=== PATIENT | female | born 1980 ===

== ENCOUNTER 2016-07-20 08:49 | Day surgery (SDC) | payer OTHER ==
[2016-07-16 08:04] VITALS: BMI 21.9
[2016-07-20] MEDS ORDERED: Lactated Ringer's 1,000 ML IV ONE ×2 (09:51→11:50)
[2016-07-20] MEDS ORDERED: Propofol 10 mg/ml Inj (20 ML) ONE (11:18)
[2016-07-20] MEDS ORDERED: Midazolam 2 MG/2 ML VIAL ONE (11:18)
[2016-07-20] MEDS ORDERED: ceFAZolin IV 1 gm in Dextrose 0 GM/0 ML BAG IVPB ONE (11:21)
[2016-07-20] MEDS: Bupivacaine HCl 0.25% PF (10 ml) Inj ONE ×2 (11:33→11:44)
[2016-07-20] MEDS ORDERED: Esmolol 100 mg/10ml Inj IV ONE (11:37)
[2016-07-20] MEDS ORDERED: Neostigmine Methylsulfate 3mg/3ml Syringe IV ONE (12:07)
[2016-07-20] MEDS ORDERED: Morphine 4 MG/ML VIAL ONE (12:15)
[2016-07-20] MEDS ORDERED: HYDROmorphone 0.5 mg/0.5 ml ISec IVP PRN (12:31)
--- NOTE | 2016-07-20 12:31 | PCM.SURG1 ---
Surgeon's Initial Post Op Note - Surgeon's Notes Surgeon: Luz Bolden MD Lead Level Designer: Pascual Barbosa MD Type of Anesthesia: General Endo Anesthesia Administered By: Dr Kaba Pre-Operative Diagnosis: Multiparity desring permanent tubal sterilization Operative Findings: anteverted uteurs 10 weeks, no adnexal masses, normal uteurs , tubes and ovaries bilaterally. Dr Pascual Barbosa was volunteer services assistant and was present for entrie case and essential in gaining entry, retraction, exposure , removing speicmens and closing Post-Operative Diagnosis: same as pre operative diagnosis Operation Performed: Laparscopic bilateral salpingecotmy Specimen/Specimens Removed: Right and left fallopian tubes Estimated Blood Loss: EBL {In ML}: 5 Blood Products Given: N/A Drains Used: No Drains Post-Op Condition: Good Date of Surgery/Procedure: 07/20/16 Time of Surgery/Procedure: 11:30
[2016-07-20] MEDS ORDERED: HYDROmorphone 0.5 mg/0.5 ml ISec IVP ONE (12:58)
--- NOTE | 2016-07-20 13:33 | OP ---
PROCEDURE DATE: 07/20/2016 SURGEON: Dr. Luz Bolden QUALITY CONTROL: Dr. Pascual Barbosa TYPE OF ANESTHESIA: General endotracheal. ANESTHESIA ADMINISTERED BY: Dr. Kaba PREOPERATIVE DIAGNOSIS: Multiparity, desiring permanent bilateral tubal sterilization. POSTOPERATIVE DIAGNOSIS: Multiparity, desiring permanent bilateral tubal sterilization. OPERATIVE FINDINGS: Anteverted uterus, 10 weeks. No adnexal masses. Normal uterus, tubes, and ovar ies bilaterally. Dr. Pascual Barbosa was the surgical assistant certified and was present for the entire case and essential in gai renaldo entry, retraction, exposure, removing specimens and closing. OPERATION PERFORMED: Laparoscopic bilateral salpingectomy. SPECIMEN REMOVED: Right and left fallopian tubes. ESTIMATED BLOOD LOSS: 5 mL. BLOOD PRODUCTS: None. COMPLICATIONS: None. After an informed consent was obtained, the patient was taken to the operating where general anesthet ic was administered without difficulty. She was then positioned in the dorsal supine position, prepp ed and draped in the usual sterile fashion with the legs supported using stirrups. Once the anesthes ia was found be adequate, bimanual exam was performed with above-mentioned findings. Cook retractor was placed in the anterior, posterior fornix of vagina. The cervix was adequately visualized. Singl e tooth tenaculum was placed in the anterior lip of the cervix. The uterus was then sounded and foll owing this, the HUMI uterine manipulator then was inserted and insufflated with 8 mL of air. The sin gle tooth tenaculum was removed and there was good hemostasis at the tenaculum puncture sites. All i nstruments were removed except the HUMI manipulator. Following this, the surgeon regloved and attent ion was then turned to the abdomen and a 1 cm infraumbilical skin incision was made after administeri ng 0.5 Marcaine 1 mL. On the lateral aspect, towel clamps were placed on either side to help tent up the skin after a skin incision was made and the Veress needle was inserted through the incision. Ne xt, the syringe was used to inject normal saline into the Veress needle. The normal saline was seen to flow freely, so the Veress needle was then connected to the CO2 gas, which was started at its lowe st setting. The gas was seen to flow freely with normal resistance. The abdomen was insufflated to an adequate distention of 15 mmHg. Once an adequate distention was reached, the CO2 gas was disconne cted. The Veress needle was removed and a 5 mm step trocar was then introduced with the introducer a nd the laparoscope under direct visualization. Upon insertion and visualization, the introducer was then removed. The camera was then inserted and the CO2 gas was then reconnected. There were normal tubes and ovaries noted. Following this, a 1 cm skin incision was made, both in the right and left l ower quadrants, approximately 4 fingerbreadths from the anterior superior iliac spine after local ane sthetic was administered. The skin incision was made and following this, a 5 mm trocar was then inse rted under direct visualization. A 5 mm port was placed on both sides, approximately 5 fingerbreadth s to the left of umbilicus and right of umbilicus. Following this, a blunt probe was then inserted i nto the abdomen and an atraumatic grasper was used to help elevate the probe to help allow for retrac tion and exposure. Following this, a 5 mm LigaSure device was inserted and the fallopian tube on eit her side was then used to transect the mesosalpinx inferior to the fallopian tube and then transect t he fallopian tube proximal, close to the cornua region. LigaSure device was then used and the specim en was then removed. The specimen was removed through the 5 mm port. A similar fashion was done on the opposite side. There was good hemostasis noted. The abdomen was then suction irrigated and ther e was good hemostasis noted. There seemed to be hemostasis. The abdomen was irrigated with good hem ostasis. At this point, the 5 mm ports were removed under direct visualization. The abdomen was disha ufflated. There was good hemostasis noted. The camera was then removed. CO2 gas was . The sk in was reapproximated, closed with 4-0 Monocryl in a running continuous fashion. The HUMI manipulato r was then removed. All instruments removed. At the end of the procedure, all needle, sponge and in strument counts were noted to be correct x 2. The patient tolerated the procedure well and was trans ferred to the recovery room in stable condition. Luz Bolden MD cc: [id number] TT: 07/20/2016 13:32:28 en
[2016-07-20 17:12] VITALS: BP 114/65; PULSE 70; RESP 20; TEMP 97.9; O2SAT 100
== END 2016-07-20 15:55 | disposition home or self-care (01) ==
LOC: C.SDS 08:49
PROVIDERS: ATTEND Obstetrics & Gynecology
DX: Z30.2 Encounter for sterilization (principal)
CPT/HCPCS: 58661; 88302; J1170; J1885; J2250; J2270; J2405; J2704; J2710; J2765; J3010; J7120

== ENCOUNTER 2016-07-29 20:14 | Emergency (ER) | payer OTHER ==
[2016-07-29 20:14] VITALS: BMI 21.9
[2016-07-29 20:43] VITALS: O2SAT 100
[2016-07-29] MEDS ORDERED: Lidocaine 2% Viscous 100 ml PO STA (21:48)
[2016-07-29] MEDS ORDERED: Aluminum Hydroxide/Magnesium Hydroxide Susp (30 mL) PO STA (21:48)
--- NOTE | 2016-07-29 21:48 | C.PDOC ---
History Of Present Illness 36 year old female presents to the ED with complaints of exacerbation to chronic LUQ pain for the past two days with new onset of black stool today prompting visit. Patient notes six weeks ago seeing her GI doctor and pending to schedule endoscopy. She also describes similar symptoms in 2010 with LUQ pain , burning in left flank, and nausea. Patient states she took pepto bismol and is currently taking omeprazole. Surgical history includes a tubal ligation this month with negative abdominal CT and abdominal sonogram earlier this year for similar symptoms. She denies fever or any other complaints at this time. Time Seen by Provider: 07/29/16 20:56 Chief Complaint (Nursing): Abdominal Pain History Per: Patient History/Exam Limitations: no limitations Onset/Duration Of Symptoms: Days Current Symptoms Are (Timing): Still Present Location Of Pain/Discomfort: LUQ Quality Of Discomfort: "Pain" Associated Symptoms: Nausea. denies: Fever, Chills, Vomiting, Diarrhea Past Medical History Reviewed: Historical Data, Nursing Documentation, Vital Signs Vital Signs: Last Vital Signs Temp 98.1 F 07/29/16 20:36 Pulse 78 07/29/16 20:36 Resp 16 07/29/16 20:36 BP 121/78 07/29/16 20:36 Pulse Ox 100 07/29/16 22:02 - Medical History PMH: Surgical History: Endoscopy - [facility] Procedures ESOPHAGOGASTRODUODENOSCOPY [EGD] W/CLOSED BIOPSY (07/03/12) Family History: States: No Known Family Hx - Social History Hx Alcohol Use: Yes (SOCIAL) Hx Substance Use: No - Immunization History Hx Tetanus Toxoid Vaccination: No Hx Influenza Vaccination: Yes Hx Pneumococcal Vaccination: No Review Of Systems Constitutional: Negative for: Fever, Chills, Sweats Cardiovascular: Negative for: Chest Pain, Palpitations Respiratory: Negative for: Cough, Shortness of Breath Gastrointestinal: Positive for: Nausea, Abdominal Pain (LUQ), Melena. Negative for: Vomiting, Diarrhea Physical Exam - Physical Exam Appears: Non-toxic, No Acute Distress Skin: Warm, Dry, No Rash Head: Atraumatic Eye(s): bilateral: Normal Inspection Neck: Normal ROM, Supple Chest: Symmetrical, No Deformity Cardiovascular: Rhythm Regular Respiratory: No Accessory Muscle Use, No Rales, No Rhonchi, No Stridor, No Wheezing Gastrointestinal/Abdominal: Soft, Tenderness (LUQ and epigastric tenderness), No Distention, No Guarding, No Rebound Rectal: No Hemorrhoids, Other (red and black stool ) Extremity: Normal ROM, No Tenderness Neurological/Psych: Oriented x3 ED Course And Treatment - Laboratory Results Result Diagrams: 07/29/16 21:54 07/29/16 21:54 O2 Sat by Pulse Oximetry: 100 (room air ) Progress - Re-Evaluation Re-evaluation Note: 07/29/16 23:05 FEELS BETTER. ADVISED PEPCID, MAALOX, CONTINUE OMEPRAZOLE FU GI. PERCOCET NEEDED - Data Reviewed Data Reviewed: Lab, Old records Disposition Counseled Patient/Family Regarding: Studies Performed, Diagnosis, Need For Followup, Rx Given - Disposition Referrals: YOUR,GI DOCTOR [Other] Disposition: HOME/ ROUTINE Disposition Time: 23:06 Condition: IMPROVED Prescriptions: oxyCODONE/Acetaminophen [Percocet 5/325 mg Tab] 1 ea PO Q6 PRN #8 tab PRN Reason: Pain, Moderate (4-7) Instructions: Abdominal Pain (ED), Diet for Ulcers and Gastritis (ED) - Clinical Impression Clinical Impression: Abdominal pain - Scribe Statement The provider has reviewed the documentation as recorded by the Scribe Taisha Sanders All medical record entries made by the Scribe were at my direction and personally dictated by me. I have reviewed the chart and agree that the record accurately reflects my personal performance of the history, physical exam, medical decision making, and the department course for this patient. I have also personally directed, reviewed, and agree with the discharge instructions and disposition.
[2016-07-29 22:01] LABS: BASO % 0.4 % (0.0-2.0); EOS # 0.2 K/uL (0.0-0.7); EOS % 2.3 % (0.0-4.0); HEMATOCRIT 40.5 % (34.0-47.0); LYMPH # 2.7 K/uL (1.0-4.3); LYMPH % 34.3 % (20.0-40.0); MEAN CELL VOLUME 88.4 fL (81.0-99.0); MEAN CORPUSCULAR HEMOGLOBIN 29.7 pg (27.0-31.0); MEAN CORPUSCULAR HGB CONC 33.6 g/dL (33.0-37.0); MEAN PLATELET VOLUME 9.1 fL (7.2-11.7); MONO # 0.6 K/uL (0.0-0.8); NRBC % 0.1 % (0.0-2.0); RED CELL DISTRIBUTION WIDTH 12.8 % (11.5-14.5); WHITE BLOOD COUNT 7.9 K/uL (4.8-10.8)
[2016-07-29 22:07] LABS: URINE BILIRUBIN NEGATIVE (NEGATIVE); URINE BLOOD NEGATIVE (NEGATIVE); URINE COLOR Straw (YELLOW); URINE GLUCOSE (UA) NORMAL (Normal); URINE KETONE NEGATIVE (NEGATIVE); URINE LEUKOCYTE ESTERASE NEG Leu/uL (Negative); URINE PROTEIN NEGATIVE (NEGATIVE); URINE UROBILINOGEN NORMAL mg/dL (0.2-1.0); WBC URINE 1 /hpf (0-5)
[2016-07-29 22:08] LABS: CHLORIDE 98 mmol/L (98-107); POTASSIUM 3.7 mmol/L (3.6-5.2); SODIUM 136 mmol/L (132-148)
[2016-07-29 22:10] LABS: ALB/GLOB RATIO 1.5 (1.0-2.1); ALKALINE PHOSPHATASE 91 U/L (38-126); AST/SGOT 23 U/L (14-36); BILIRUBIN,TOTAL 0.5 mg/dL (0.2-1.3); BLOOD UREA NITROGEN 14 mg/dL (7-17); CARBON DIOXIDE 26 mmol/L (22-30); GFR AFRICAN-AMERICAN > 60; TOTAL PROTEIN 7.2 g/dL (6.3-8.3)
[2016-07-29 22:11] LABS: ALT/SGPT 35 U/L (9-52); CALCIUM 9.2 mg/dl (8.6-10.4); GLUCOSE,RANDOM 83 mg/dL (65-105)
[2016-07-29] MEDS ORDERED: Aluminum Hydroxide/Magnesium Hydroxide Susp (30 mL) ONE (22:18)
[2016-07-29 23:23] VITALS: BP 119/83; PULSE 82; RESP 18; TEMP 97.9
== END 2016-07-29 23:22 | disposition home or self-care (01) ==
LOC: C.ER 20:14
DX: R10.12 Left upper quadrant pain (principal)
CPT/HCPCS: 80053; 81001; 83690; 84703; 85025; 96374; 96375; 99284; G0328; J2270; J2405